=== PATIENT | female | born 1960 | race Caucasian/White ===

== ENCOUNTER 2016-11-08 21:11 | Emergency (ER) | payer BC ==
[2016-11-08 21:33] VITALS: BP 112/62
--- NOTE | 2016-11-08 22:10 | UC ---
Skin Complaint HPI - HPI Summary HPI Summary: PATIENT PRESENTS TO THE WITH LEFT FOOT PLANTAR WART. PT HAS BEEN TREATING IT WITH MEDICATED BANDAGES FOR WARTS AND APPLE CIDER VINIGAR SOAKS. HAS BEEN MORE PAINFUL AND HAS RED STREAKS NOW FROM WOUND. HOWEVER, ON PHYSICAL EXAM, THERE IS A SMALL WHAT APPEARS TO BE A BLOOD VESSEL FROM THE WOUND, AND DOES NOT APPEAR TO BE INFECTED. NO WARMTH, DRAINAGE, TEMPERATURE OR COLOR CHANGES OTHERWISE ARE NOTED. SHE IS EXTREMELY ANXIOUS AND STATES SHE HAS MULTIPLE HEALTH PROBLEMS WHICH COULD CONTRIBUTE TO HER HAVING THE WOUND BECOME INFECTED. SHE IS CONCERNED AND WOULD LIKE ANTIBIOTICS JUST IN CASE. SHE IS ENCOURAGED TO SEE A COMPENSATION COORDINATOR FOR WART REMOVAL WITH CRYOTHERAPY. SHE IS OK WITH THIS PLAN. DENIES OTHER PAIN OR CONCERNS AT THIS TIME. - History of Current Complaint Chief Complaint: UCLowerExtremity Time Seen by Provider: 11/08/16 21:29 Stated Complaint: SKIN Hx Obtained From: Patient Hx Last Menstrual Period: 2006, UTERINE ABLATION ?: No Onset/Duration: Gradual Onset Skin Exposure Onset/Duration: Weeks Ago Timing: Constant Onset Severity: Mild Current Severity: Mild Pain Intensity: 2 Pain Scale Used: 0-10 Numeric Location: Discrete - LEFT MEDIAL FOOT DISCOMFORT Character: Pain Aggravating Factor(s): Nothing Alleviating Factor(s): Nothing Associated Signs & Symptoms: Positive: Red Streaks - Allergy/Home Medications Allergies/Adverse Reactions: Allergies Allergy/AdvReac Type Severity Reaction Status Date / Time Sulfa Antibiotics Allergy Severe Hives Verified 11/08/16 21:23 Ampicillin Allergy Unknown SEVERE Verified 11/08/16 21:23 DIARRHEA Dexamethasone [From Decadron] Allergy Unknown Bleeding Verified 11/08/16 21:23 Hydrocodone [From Vicodin] Allergy Vomiting Verified 11/08/16 21:23 Amoxicillin AdvReac Diarrhea Verified 11/08/16 21:23 Home Medications: Home Medications Magnesium [Magnesium] 400 mg PO DAILY 11/08/16 [History Confirmed 11/08/16] Multiple Vitamin [Multi Vitamin] 1 tab PO DAILY 11/08/16 [History Confirmed 05/22] diPHENhydraMINE PO* [Benadryl PO 25 MG TAB*] 25 mg PO Q6H PRN 11/08/16 [History Confirmed 11/08/16] Review of Systems Constitutional: Negative Skin: Other - SMALL WART NOTED TO THE MEDIAL SIDE OF THE PLANTAR FOOT WITH A SMALL RED BLOOD VESSEL Respiratory: Negative Cardiovascular: Negative Motor: Negative Neurovascular: Negative Psychological: Negative Is Patient Immunocompromised?: No All Other Systems Reviewed And Are Negative: Yes PMH/Surg Hx/FS Hx/Imm Hx Previously Healthy: Yes Other History Of: Negative For: HIV, Hepatitis B, Hepatitis C, Anticoagulant Therapy - Surgical History Surgical History: Yes Surgery Procedure, Year, and Place: D&C- x2, partial ovary removal. removal of part of her intestine for diverticulitis - Family History Known Family History: Positive: None - Social History Occupation: Employed Full-time Lives: With Family Alcohol Use: Rare Substance Use Type: None Smoking Status (MU): Never Smoked Tobacco Physical Exam Triage Information Reviewed: Yes Appearance: Well-Appearing, Well-Nourished Vital Signs: Initial Vital Signs Temp 99.2 F 11/08/16 21:25 Pulse 79 11/08/16 21:25 Resp 16 11/08/16 21:25 BP 112/62 11/08/16 21:25 Pulse Ox 98 11/08/16 21:25 Vital Signs Reviewed: Yes Eye Exam: Normal Eyes: Positive: Conjunctiva Clear Neck exam: Normal Neck: Positive: Supple, No Lymphadenopathy Respiratory Exam: Normal Respiratory: Positive: Chest non-tender, Lungs clear Cardiovascular Exam: Normal Cardiovascular: Positive: RRR Musculoskeletal Exam: Normal Musculoskeletal: Positive: Strength Intact Neurological Exam: Normal Neurological: Positive: Alert Psychological: Positive: Normal Response To Family, Age Appropriate Behavior Skin: Positive: Other - PLANTAR WART TO THE MEDIAL SIDE OF THE FOOT Course/Dx - Course Course Of Treatment: PATIENT IS EVALUATED FOR PLANTAR WART. THERE ARE NO SIGNS OF INFECTION INCLUDING WARMTH, REDNESS, STREAKING, DRAINAGE OR WORSENING PAIN AROUND THE WOUND. THERE IS A SMALL PLANTAR WART TO THE MEDIAL SIDE OF THE PLANTAR SURFACE OF THE RIGHT FOOT WHICH DOES NOT APPEAR TO BE INFECTED. UPON PATIENT REQUEST, KEFLEX IS GIVEN TO PATIENT AND SHE IS ENCOURAGED TO ONLY TAKE THE ABX IF SYMPTOMS WORSEN OR SHE DEVELOPS ANY OF THE ABOVE SYMPTOMS. SHE IS GIVEN DERMATOLOGY ADDRESS/CONTACT INFORMATION TO SET UP AN APPT FOR CRYOTHERAPY. SHE IS OK WITH DISCHARGE AT THIS TIME. SHE CONTINUES TO BE ANXIOUS ON DISCHARGE, BUT PATIENT IS ASSURED THIS IS NOT INFECTED AT THIS TIME. - Diagnoses Provider Diagnoses: PLANTAR WART Discharge - Discharge Plan Condition: Stable Disposition: HOME Prescriptions: DOXYcycline CAP(*) [DOXYcycline 100MG CAP(*)] 100 mg PO BID #10 cap Patient Education Materials: Cellulitis (ED), Common Wart (ED) Forms: *Work Release Referrals: Devang Morgan MD [Primary Care Provider] - Additional Instructions: [facility] [place] [address] [facility] [address] Take the Keflex only if you develop redness, worsening swelling, drainage from the area, you develop red streaking around the area or you develop a fever.
== END 2016-11-08 22:15 | disposition home or self-care (01) ==
LOC: UCCORT 21:11
DX: B07.0 Plantar wart (principal); Z88.1 Allergy status to other antibiotic agents; Z88.5 Allergy status to narcotic agent
CPT/HCPCS: 99212; G0463